=== PATIENT | male | born 2000 | race African-American/Black ===

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

== ENCOUNTER 2018-05-04 01:16 | Emergency (ER) | payer OTHER ==
[~2018-05-04] VITALS: Ht 188 cm; Wt 93.0 kg
[~2018-05-04 01:16] MED LIST: PREDNISONE 20 M20 MG PO
[2018-05-04] MEDS ORDERED: PREDNISONE 20 M20 MG PO (01:51)
[2018-05-04] MEDS ORDERED: PEPCID20 MG PO (01:51)
[2018-05-04 02:49] VITALS: BP 140/77
== END 2018-05-04 02:51 | disposition home or self-care (01) ==
LOC: ER 01:16
DX: T78.1XXA Other adverse food reactions, not elsewhere classified, initial encounter (principal); T78.3XXA Angioneurotic edema, initial encounter; J45.909 Unspecified asthma, uncomplicated